=== PATIENT | male | born 1970 | race Caucasian/White ===

== ENCOUNTER → 2023-08-02 06:27 | Day surgery (SDC) | payer BC, SELFPAY | LOC: GI 06:27 | PROVIDERS: ATTENDING PHYSICIAN Internal Medicine | DX: Z12.11 Encounter for screening for malignant neoplasm of colon (principal); Z86.010 Personal history of colon polyps; K64.4 Residual hemorrhoidal skin tags; K57.30 Diverticulosis of large intestine without perforation or abscess without bleeding; D12.5 Benign neoplasm of sigmoid colon; Q85.89 Other phakomatoses, not elsewhere classified | CPT/HCPCS: 45385; 88305; 88341; 88342 ==

== ENCOUNTER 2023-11-13 06:29 | Outpatient (RCR) | payer BC, SELFPAY | END 2023-11-13 23:59 | disposition home or self-care (01) | LOC: RPT 06:29 | PROVIDERS: ATTENDING PHYSICIAN Specialist; FAMILY PHYSICIAN Nurse Practitioner Family | DX: M75.41 Impingement syndrome of right shoulder (principal); M25.511 Pain in right shoulder; M67.813 Other specified disorders of tendon, right shoulder; Z73.6 Limitation of activities due to disability | CPT/HCPCS: 97110; 97112; 97161 ==

== ENCOUNTER → 2024-12-22 07:51 | Outpatient (REF) | payer BC, SELFPAY | LOC: EMG 07:51 | PROVIDERS: ATTENDING PHYSICIAN Orthopaedic Surgery Hand Surgery; FAMILY PHYSICIAN Internal Medicine | DX: M79.642 Pain in left hand (principal) | CPT/HCPCS: 95886; 95910 ==